=== PATIENT | female | born 1965 | race Caucasian/White ===

== ENCOUNTER → 2019-06-08 | Outpatient (CLI) | payer BC | END | disposition home or self-care (01) | LOC: CFH 14:17 | PROVIDERS: ATTEND Orthopaedic Surgery Sports Medicine | DX: S83.242A Other tear of medial meniscus, current injury, left knee, initial encounter (principal); M25.462 Effusion, left knee; M71.22 Synovial cyst of popliteal space [Baker], left knee; X58.XXXA Exposure to other specified factors, initial encounter; Y93.89 Activity, other specified; Y92.89 Other specified places as the place of occurrence of the external cause; Y99.8 Other external cause status ==

== ENCOUNTER 2021-01-27 15:39 | Emergency (ER) | payer BC, OTHER ==
[~2021-01-27] VITALS: Ht 172.7 cm; Wt 71.8 kg
--- NOTE | 2021-01-27 16:13 | NUR ---
PT AMBULATORY TO ROOM 15 W/ C/O RLQ ABD PAIN X 3-4 DAYS. PT STATES SHE BELIEVES ITS HER APPENDIX. PT DNEIES N/V/D. PT RESTING ON GURNEY. NADN. VSS. WARM BLANKET PROVIDED. CALL LIGHT IN REACH. PIV INITIATED.
[2021-01-27 16:48] LABS: MICROSCOPIC NOT IND
--- NOTE | 2021-01-27 16:59 | NUR ---
PT RESTING ON GURNEY. NADN. STOVALL.
[2021-01-27 17:00] LABS: ALANINE AMINOTRANSFERASE 17 U/L (12-78); ALBUMIN 3.7 g/dL (3.4-5.0); CALCIUM 8.6 mg/dL (8.5-10.1); CREATININE 0.76 mg/dL (0.55-1.02)
[2021-01-27 17:01] LABS: BASOPHILS % (AUTO) 1 % (0-1); EOSINOPHILS % (AUTO) 3 % (1-7); LYMPHOCYTES % (AUTO) 33 % (22-44); MEAN CORPUSCULAR HEMOGLOBIN 29.8 pg (27.0-34.8); MEAN CORPUSCULAR HGB CONC 33.4 g/dL (32.4-35.8); MEAN PLATELET VOLUME 8.5 fL (7.4-10.4); MONOCYTES % (AUTO) 10 % (2-9); NEUTROPHILS % (AUTO) 53 % (42-75); PLATELET COUNT 380 x10^3/uL (130-400); RED BLOOD COUNT 4.66 x10^6/uL (3.82-5.3); RED CELL DISTRIBUTION WIDTH 15.6 % (9.6-15.2)
[2021-01-27 17:03] LABS: ALKALINE PHOSPHATASE 58 U/L (45-117); BILIRUBIN,TOTAL 0.4 mg/dL (0.2-1.0); TOTAL PROTEIN 7.6 g/dL (6.4-8.2)
[2021-01-27 17:08] LABS: ANION GAP 5 mmol/L (5-15); CHLORIDE 108 mmol/L (98-107)
[2021-01-27] MEDS ORDERED: OMNIPAQUE 350 MG/ML, 100ML BOTTLE ONE (17:40)
[2021-01-27 17:54] VITALS: BP 148/93
--- NOTE | 2021-01-27 17:54 | NUR ---
PT RESTING ON GURNEY. NADN. STOVALL.
--- NOTE | 2021-01-27 17:56 | NUR ---
PT CHART REVIEWED AND PLACED FOR RECHECK.
== END 2021-01-27 18:18 | disposition home or self-care (01) ==
LOC: ED 16:30
DX: R10.31 Right lower quadrant pain (principal)
CPT/HCPCS: 36415; 74177; 76830; 80053; 81003; 83690; 85025; 99285; Q9967